=== PATIENT | female | born 1930 | race Caucasian/White ===

== ENCOUNTER 2017-03-04 20:32 | Inpatient (IN) ==
--- OUTSIDE RECORDS SUMMARY | 2017-03-04 21:12 | External Medical Summary | Referral Summary ---
:1930 Author Organization [facility] [place] [address] Care Team Providers Name Role Phone Dario Polanco Primary Care Physician Encounter VC Date(s): 12/30/14 - 12/30/14 [facility] [place] [address] [place] Discharge Diagnosis: Benign essential hypertension Discharge Diagnosis: Gastroesophageal reflux disease Discharge Diagnosis: Hypercholesterolemia Discharge Diagnosis: Type 2 diabetes mellitus Discharge Disposition: 01-Home or Self Care Attending Physician: Dario Polanco MD Admitting Physician: Dario Polanco MD Vital Signs Most recent to oldest [Reference Range]: 1 Temperature Tympanic [36.6-38.1 degC] 36.0 degC *LOW* (12/30/14 8:40 AM) Peripheral Pulse Rate [60-100 bpm] 80 bpm (12/30/14 8:40 AM) Respiratory Rate [14-20 br/min] 16 br/min (12/30/14 8:40 AM) Blood Pressure [90-140/60-90 mmHg] 150/66 mmHg *HI* (12/30/14 8:40 AM) Problem List Condition Effective Dates Status Health Status Informant Benign essential hypertension Active (disorder)(Confirmed) Gastroesophageal reflux disease Active (disorder)(Confirmed) History of breast cancer(Confirmed) Active Kidney disease(Confirmed) Active Type 2 diabetes mellitus(Confirmed) Active Allergies, Adverse Reactions, Alerts No Known Medication Allergies Medications amLODIPine 10 mg oral tablet See Instructions, TAKE 1 TABLET DAILY, # 90 tabs, 1 Refill(s), Pharmacy: [facility], TAKE 1 TABLET DAILY Start Date: 10/21/14 Status: OrderedglipiZIDE 10 mg oral tablet See Instructions, TAKE 1 TABLET EVERY DAY BEFORE A MEAL, # 90 tabs, eRx: [facility], TAKE 1 TABLET EVERY DAY BEFORE A MEAL Start Date: 12/21/14 Status: OrderedKlor-Con oral tablet, extended release See Instructions, TAKE 1 TABLET DAILY (NEED TO MAKE APPOINTMENT), # 90 tabs, 1 Refill(s), eRx: [facility], TAKE 1 TABLET DAILY (NEED TO MAKE APPOINTMENT) Start Date: 08/13/14 Status: Orderedlisinopril 5 mg oral tablet See Instructions, TAKE 1 TABLET DAILY, # 90 tabs, 2 Refill(s), eRx: [facility], TAKE 1 TABLET DAILY Start Date: 04/07/14 Status: Orderedomeprazole 40 mg oral delayed release capsule See Instructions, TAKE 1 CAPSULE EVERY DAY, # 90 caps, 1 Refill(s), Pharmacy: [facility], TAKE 1 CAPSULE EVERY DAY Start Date: 10/21/14 Status: OrderedPravachol 20 mg oral tablet 20 mg 1 tabs, Oral, Daily, # 90 tabs, 3 Refill(s), Pharmacy: [facility], 1 tabs Oral Daily,x90 days Start Date: 12/30/14 Stop Date: 12/25/15 Status: Ordered Results Chemistry Most recent to oldest [Reference Range]: 1 Sodium Lvl [135-144 mEq/L] 142 mEq/L (12/30/14 9:17 AM) Potassium Lvl [3.5-5.2 mEq/L] 3.5 mEq/L (12/30/14 9:17 AM) Chloride [99-111 mEq/L] 107 mEq/L (12/30/14 9:17 AM) CO2 [22-31 mEq/L] 24 mEq/L (12/30/14 9:17 AM) AGAP [3-20] 11 (12/30/14 9:17 AM) BUN [10-20 mg/dL] 22 mg/dL *HI* (12/30/14 9:17 AM) Glucose Lvl [70-99 mg/dL] 231 mg/dL *HI* (12/30/14 9:17 AM) Creatinine Lvl [0.57-1.11 mg/dL] 0.99 mg/dL (12/30/14 9:17 AM) eGFR [>60 mL/min] 54 mL/min 1 *ABN* (12/30/14 9:17 AM) Calcium Lvl [8.9-10.5 mg/dL] 9.3 mg/dL (12/30/14 9:17 AM) Hgb A1c [4.1-5.6 %] 7.3 % *HI* (12/30/14 9:17 AM) eAvg Glucose 162.8 mg/dL (12/30/14 9:17 AM) 1Result Comment: Multiply eGFR results by 1.21 for race. Immunizations No data available for this section Procedures Procedure Date Related Diagnosis Body Site Renal lithotripsy 11/23/10 Rt Mastectomy for breast cancer 2007 Colonoscopy Hysterectomy Kidney stone removal Social History Social History Type Response Smoking Status Never smoker Assessment and Plan Extracted from: Title: Office Visit Note Author: Dario Polanco MD Date: 12/30/14 Assessment/Plan Benign essential hypertension Gastroesophageal reflux disease Hypercholesterolemia Type 2 diabetes mellitus Plan: I want you to stop the niacin and start some pravastatin 20 mg once a day. I want to check an LDL and CMP and an A1c in 3 months. Continue all other current medications. I suspect that we should make some changes to your diabetes medicine if you're A1c continues to be high. Follow-up in 3 months. We did discuss the need for new primary care physician. Ordered: Hemoglobin A1c Orders: pravastatin, 20 mg 1 tabs, Oral, Daily, # 90 tabs, 3 Refill(s), [facility], 1 tabs Oral Daily,x90 days
--- OUTSIDE RECORDS SUMMARY | 2017-03-04 21:12 | External Medical Summary | Referral Summary ---
:1930 Author Organization [facility] [place] [address] Care Team Providers Name Role Phone Adams Duong Primary Care Physician Encounter VC Date(s): 03/30/15 - 03/30/15 [facility] [place] [address]- Discharge Diagnosis: Type 2 diabetes mellitus Discharge Diagnosis: Benign essential hypertension Discharge Diagnosis: Gastroesophageal reflux disease Discharge Diagnosis: Hypercholesteremia Discharge Disposition: 01-Home or Self Care Attending Physician: Dario Polanco MD Admitting Physician: Dario Polanco MD Vital Signs Most recent to oldest [Reference Range]: 1 Temperature Tympanic [36.6-38.1 degC] 36.2 degC *LOW* (03/30/15 3:06 PM) Blood Pressure [90-140/60-90 mmHg] 116/64 mmHg (03/30/15 3:06 PM) Problem List Condition Effective Dates Status Health Status Informant Benign essential hypertension Active (disorder)(Confirmed) Gastroesophageal reflux disease Active (disorder)(Confirmed) History of breast cancer(Confirmed) Active Hypercholesteremia(Confirmed) Active Kidney disease(Confirmed) Active Type 2 diabetes mellitus(Confirmed) Active Allergies, Adverse Reactions, Alerts No Known Medication Allergies Medications amLODIPine 10 mg oral tablet See Instructions, TAKE 1 TABLET DAILY, # 90 tabs, 1 Refill(s), Pharmacy: [facility], TAKE 1 TABLET DAILY Start Date: 10/21/14 Status: OrderedglipiZIDE 10 mg oral tablet See Instructions, TAKE 1 TABLET EVERY DAY BEFORE A MEAL bid, # 180 tabs, 1 Refill(s), [facility], TAKE 1 TABLET EVERY DAY BEFORE A MEAL bid Start Date: 02/23/15 Status: OrderedKlor-Con oral tablet, extended release See Instructions, TAKE 1 TABLET DAILY (NEED TO MAKE APPOINTMENT), # 90 tabs, 1 Refill(s), eRx: [facility], TAKE 1 TABLET DAILY (NEED TO MAKE APPOINTMENT) Start Date: 08/13/14 Status: Orderedlisinopril 5 mg oral tablet See Instructions, TAKE 1 TABLET DAILY (PLEASE SCHEDULE AN APPOINTMENT FOR FURTHER REFILLS), # 90 tabs, 2 Refill(s), eRx: [facility], TAKE 1 TABLET DAILY (PLEASE SCHEDULE AN APPOINTMENT FOR FURTHER REFILLS) Start Date: 03/17/15 Status: Orderedomeprazole 40 mg oral delayed release capsule See Instructions, TAKE 1 CAPSULE EVERY DAY, # 90 caps, 1 Refill(s), Pharmacy: [facility], TAKE 1 CAPSULE EVERY DAY Start Date: 10/21/14 Status: OrderedPravachol 20 mg oral tablet 20 mg 1 tabs, Oral, Daily, # 90 tabs, 3 Refill(s), Pharmacy: [facility], 1 tabs Oral Daily,x90 days Start Date: 12/30/14 Stop Date: 12/25/15 Status: Ordered Results No data available for this section Immunizations No data available for this section Procedures Procedure Date Related Diagnosis Body Site Renal lithotripsy 11/23/10 Rt Mastectomy for breast cancer 2007 Colonoscopy Hysterectomy Kidney stone removal Social History Social History Type Response Smoking Status Never smoker Assessment and Plan Extracted from: Title: Office Visit Note Author: Dario Polanco MD Date: 03/30/15 Assessment/Plan Benign essential hypertension Gastroesophageal reflux disease Hypercholesteremia Type 2 diabetes mellitus Plan: I'm going to check an A1c,microalbumin level, CMP andLDL level. Continue all current medications. We discussed the need to find a new primary care doctor. Follow-up in 3 months with jim garcia new doctorfor med checkup. We discussed the need to see an eye doctor yearly. At this pointyou're daughter reported that you do see an eye doctor yearlybut could not remember the name of the doctor.
--- OUTSIDE RECORDS SUMMARY | 2017-03-04 21:12 | External Medical Summary | Referral Summary ---
:1930 Author Organization [facility], [facility] Address [address] [place] [address] [place] [address] Care Team Providers Name Role Phone Adams Duong Primary Care Physician Encounter VC Date(s): 04/21/15 - 04/21/15 [facility], [address] [place] [phone]- Discharge Diagnosis: Closed fracture of left distal radius and ulna Discharge Diagnosis: Closed fracture of distal end of ulna Discharge Disposition: 01-Home or Self Care Attending Physician: Link Minor PA-C Admitting Physician: Link Minor PA-C Vital Signs Most recent to oldest [Reference Range]: 1 Temperature Tympanic [36.6-38.1 degC] 36.9 degC (04/21/15 6:04 PM) Apical Heart Rate [60-100 bpm] 79 bpm (04/21/15 6:04 PM) Blood Pressure [90-140/60-90 mmHg] 130/72 mmHg (04/21/15 6:04 PM) SpO2 96 % (04/21/15 6:04 PM) Problem List Condition Effective Dates Status Health Status Informant Benign essential hypertension Active (disorder)(Confirmed) Gastroesophageal reflux disease Active (disorder)(Confirmed) History of breast cancer(Confirmed) Active Hypercholesteremia(Confirmed) Active Kidney disease(Confirmed) Active Type 2 diabetes mellitus(Confirmed) Active Allergies, Adverse Reactions, Alerts No Known Medication Allergies Medications amLODIPine 10 mg oral tablet See Instructions, TAKE 1 TABLET DAILY, # 90 tabs, 1 Refill(s), Pharmacy: [facility], TAKE 1 TABLET DAILY Start Date: 10/21/14 Status: OrderedglipiZIDE 10 mg oral tablet See Instructions, TAKE 1 TABLET EVERY DAY BEFORE A MEAL bid, # 180 tabs, 1 Refill(s), Pharmacy: [facility], TAKE 1 TABLET EVERY [...] REFILLS), # 90 tabs, 2 Refill(s), eRx: [facility], TAKE 1 TABLET DAILY (PLEASE SCHEDULE AN APPOINTMENT FOR FURTHER REFILLS) Start Date: 03/17/15 Status: Orderedomeprazole 40 mg oral delayed release capsule See Instructions, TAKE 1 CAPSULE EVERY DAY, # 90 caps, 1 Refill(s), Pharmacy: [facility], TAKE 1 CAPSULE EVERY DAY Start Date: 10/21/14 Status: OrderedPravachol 20 mg oral tablet 20 mg 1 tabs, Oral, Daily, # 90 tabs, 3 Refill(s), Pharmacy: [facility], 1 tabs Oral Daily,x90 [...] Smoking Status Never smoker Assessment and Plan No data available for this section
--- OUTSIDE RECORDS SUMMARY | 2017-03-04 21:12 | External Medical Summary | Referral Summary ---
:1930 Author Organization [facility] [place] [address] Care Team Providers Name Role Phone Dario Polanco Primary Care Physician Encounter VC Date(s): 12/30/14 - 12/30/14 [facility] [place] [phone] [place] Discharge Diagnosis: [...] DAILY, # 90 tabs, 1 Refill(s), Pharmacy: [facility], TAKE 1 TABLET DAILY Start Date: 10/21/14 Status: OrderedglipiZIDE 10 mg oral tablet See Instructions, TAKE 1 TABLET EVERY DAY BEFORE A MEAL, # 90 tabs, eRx: [facility], TAKE 1 TABLET EVERY [...] DAY, # 90 caps, 1 Refill(s), Pharmacy: [facility], TAKE 1 CAPSULE EVERY DAY Start Date: 10/21/14 Status: OrderedPravachol 20 mg oral tablet 20 mg 1 tabs, Oral, Daily, # 90 tabs, 3 Refill(s), Pharmacy: [facility], 1 tabs Oral Daily,x90 [...] Daily, # 90 tabs, 3 Refill(s), [facility], 1 tabs Oral Daily,x90 days
--- OUTSIDE RECORDS SUMMARY | 2017-03-04 21:12 | External Medical Summary | Referral Summary ---
:1930 Author Organization [facility] [place] [address] Care Team Providers Name Role Phone Dario Polanco Primary Care Physician Encounter VC Date(s): 12/30/14 - 12/30/14 [facility] [place] [phone] [place] Discharge Diagnosis: [...] DAILY, # 90 tabs, 1 Refill(s), Pharmacy: [facility], TAKE 1 TABLET DAILY Start Date: 10/21/14 Status: OrderedglipiZIDE 10 mg oral tablet See Instructions, TAKE 1 TABLET EVERY DAY BEFORE A MEAL, # 90 tabs, eRx: [facility], TAKE 1 TABLET EVERY [...] DAY, # 90 caps, 1 Refill(s), Pharmacy: [facility], TAKE 1 CAPSULE EVERY DAY Start Date: 10/21/14 Status: OrderedPravachol 20 mg oral tablet 20 mg 1 tabs, Oral, Daily, # 90 tabs, 3 Refill(s), Pharmacy: [facility], 1 tabs Oral Daily,x90 [...] Daily, # 90 tabs, 3 Refill(s), [facility], 1 tabs Oral Daily,x90 days
--- OUTSIDE RECORDS SUMMARY | 2017-03-04 21:12 | External Medical Summary | Referral Summary ---
:1930 Author Organization [facility] [place] [address] Care Team Providers Name Role Phone Dario Polanco Primary Care Physician Encounter VC Date(s): 12/30/14 - 12/30/14 [facility] [place] [address] [place] Discharge Diagnosis: [...] DAILY, # 90 tabs, 1 Refill(s), Pharmacy: [facility], TAKE 1 TABLET DAILY Start Date: 10/21/14 Status: OrderedglipiZIDE 10 mg oral tablet See Instructions, TAKE 1 TABLET EVERY DAY BEFORE A MEAL, # 90 tabs, eRx: [facility], TAKE 1 TABLET EVERY [...] DAY, # 90 caps, 1 Refill(s), Pharmacy: [facility], TAKE 1 CAPSULE EVERY DAY Start Date: 10/21/14 Status: OrderedPravachol 20 mg oral tablet 20 mg 1 tabs, Oral, Daily, # 90 tabs, 3 Refill(s), Pharmacy: [facility], 1 tabs Oral Daily,x90 [...] Daily, # 90 tabs, 3 Refill(s), [facility], 1 tabs Oral Daily,x90 days
--- OUTSIDE RECORDS SUMMARY | 2017-03-04 21:12 | External Medical Summary | Referral Summary ---
:1930 Author Organization [facility] [place] [address] Care Team Providers Name Role Phone Adams Duong Primary Care Physician Encounter VC Date(s): 12/30/14 - 12/30/14 [facility] [place] [address]- Discharge Diagnosis: Benign essential hypertension Discharge Diagnosis: Gastroesophageal reflux disease Discharge Diagnosis: Hypercholesterolemia Discharge Diagnosis: Type 2 diabetes mellitus Discharge Disposition: 01-Home or Self Care Attending Physician: aDrio Polanco MD Admitting Physician: Dario Polanco MD [...] DAILY, # 90 tabs, 1 Refill(s), Pharmacy: [facility], TAKE 1 TABLET DAILY Start Date: 10/21/14 Status: OrderedglipiZIDE 10 mg oral tablet See Instructions, TAKE 1 TABLET EVERY DAY BEFORE A MEAL bid, # 180 tabs, 1 Refill(s), Pharmacy: [facility], TAKE 1 TABLET EVERY [...] REFILLS), # 90 tabs, 2 Refill(s), eRx: [facility], TAKE 1 TABLET DAILY (PLEASE SCHEDULE AN APPOINTMENT FOR FURTHER REFILLS) Start Date: 03/17/15 Status: Orderedomeprazole 40 mg oral delayed release capsule See Instructions, TAKE 1 CAPSULE EVERY DAY, # 90 caps, 1 Refill(s), Pharmacy: [facility], TAKE 1 CAPSULE EVERY DAY Start Date: 10/21/14 Status: OrderedPravachol 20 mg oral tablet 20 mg 1 tabs, Oral, Daily, # 90 tabs, 3 Refill(s), Pharmacy: [facility], 1 tabs Oral [...] Daily, # 90 tabs, 3 Refill(s), Pharmacy: [facility], 1 tabs Oral Daily,x90 days
[2017-03-04] MEDS: SALINE FLUSH 10ml SYRINGE IVF PRN (21:13)
[2017-03-04] MEDS ORDERED: NS 1,000 ML IV SCH (21:15)
--- NOTE | 2017-03-04 22:40 | Emergency Department Report ---
Nausea/Vomiting/Diarrhea HPI - General Chief complaint: Nausea/Vomiting/Diarrhea Stated complaint: Dehydrated, vomitting Time Seen by Provider: 03/04/17 20:52 Source: patient, family Mode of arrival: wheelchair Limitations: no limitations - History of Present Illness HPI Narrative: Pt presents with a complaint of weakness and not feeling well for the past few days. Daughter reports another daughter told her pt was c/o vomiting and diarrhea however pt does not report this to daughter at bedside or medical staff. Pt cannot recall her last po intake, she denies any pain, and is unable to report if fever at home. MD complaint: vomiting, diarrhea Onset (ago): day(s) Associated Abdominal Pain: No Relieving factors: none Exacerbating factors: none Associated symptoms: dysuria, weakness - Related Data Home Medications Medication Instructions Recorded Confirmed Amlodipine Besylate 10 mg PO DAILY #0 07/20/10 03/04/17 Potassium Chloride [Klor-Con 10] 10 meq PO DAILY #0 07/20/10 03/04/17 Omeprazole 40 mg PO DAILY 03/04/17 03/04/17 Pravastatin [Pravachol] 1 tab PO HS 03/04/17 03/04/17 Previous Rx's Medication Instructions Recorded Acidoph/L.bulg/Bif.b/S.thermop 2 cap PO TIDWM tab 03/07/17 [Bacid Caplet] CephALEXin [Keflex] 500 mg PO TID #5 cap 03/07/17 Mirtazapine [Remeron] 7.5 mg PO HS #30 tab 03/07/17 glipiZIDE [Glipizide] 10 mg PO ACBID #0 03/07/17 Allergies Allergy/AdvReac Type Severity Reaction Status Date / Time No Known Drug Allergies Allergy Unknown Verified 03/04/17 23:30 Review of Systems All systems: reviewed and negative except as stated Constitutional: Reports: as per HPI Gastrointestinal: Reports: as per HPI Genitourinary: Reports: as per HPI Musculoskeletal: Reports: as per HPI Neurological: Reports: as per HPI PFS Patient Stated Medical History Hypertension Yes Diabetes Mellitus Type 2 Yes Clinic Medical History Dehydration (Acute Medical) UTI (urinary tract infection), uncomplicated (Acute Medical) Gastroenteritis and colitis, viral (Acute Medical) - Social History Smoking status: Never smoker Physical Exam - Limitations Limitations: no limitations - General General appearance: alert, in distress - Normal Exams: Head:: Normocephalic without trauma Eyes:: Pupils are PERRLA w/ EOMI Neck:: Full range of motion, without adenopathy Chest/Respirations:: Clear all serra, with good airflow Cardiovascular:: Regular rate and rhythm, without murmur or gallop Abdomen:: Bowel sounds positive, soft, non-tender, non-distended Musculoskeletal:: No tenderness, or deformity noted, good range of motion, all extremities Integumentary:: No rashes Neurological:: Patient is alert, and oriented Psychiatric:: Patient exhibits, appropriate attention, emotion and affect Course Vital Signs Temperature 97.9 F 03/04/17 20:46 Pulse Rate 101 H 03/04/17 20:46 Respiratory Rate 32 H 03/04/17 20:46 Blood Pressure 99/54 03/04/17 20:46 Pulse Oximetry 100 03/04/17 20:46 Temperature 96.9 F 03/07/17 07:27 Pulse Rate 82 03/07/17 07:27 Respiratory Rate 14 03/07/17 07:27 Blood Pressure 145/74 H 03/07/17 07:27 Pulse Oximetry 99 03/07/17 07:27 Nausea/Vomiting/Diarrhea - Differential Diagnosis Likely: traveler's diarrhea, food poisoning, gastroenteritis, clostridium difficile infection, dehydration - Lab Data Result diagrams: 03/07/17 04:25 03/07/17 04:25 Lab Results 03/04/17 03/04/17 03/04/17 Range/Units 21:16 21:16 22:00 WBC 17.3 H (4.5-11.0) T/MM3 RBC 3.93 L (4.00-5.20) M/MM3 Hgb 12.4 (12-16) GM/DL Hct 37.8 (36-46) % MCV 96.2 (80-100) UM3 MCH 31.6 (26-34) UUG MCHC 32.8 (31-37) GM/DL RDW Std Deviation 44.0 (36.9-50.2) FL Plt Count 470 H (130-400) T/MM3 MPV 10.1 (9.4-12.4) UM3 Immature Gran % (Auto) Not performed Neut % (Auto) Not performed Lymph % (Auto) Not performed [place] % (Auto) Not performed Eos % (Auto) Not performed Baso % (Auto) Not performed Neut # (Auto) Not performed Lymph # (Auto) Not performed [place] # (Auto) Not performed Eos # (Auto) Not performed Baso # (Auto) Not performed Abs Immat Gran (auto) Not performed Neutrophils % (Manual) 93.0 H (33-66) % Lymphocytes % (Manual) 6.0 L (23-45) % Monocytes % (Manual) 1.0 (0-9.0) % Neutrophils # (Manual) 16.1 H (1.8-7.7) T/MM3 Lymphocytes # (Manual) 1.0 (1-4.8) T/MM3 Monocytes # (Manual) 0.2 (0-0.8) T/MM3 RBC Morph Comment Normal Turbidity < 20 (0-20) Sodium 147 H (134-144) MEQ/L Potassium 4.0 (3.6-5) MEQ/L Chloride 112 H (98-107) MEQ/L Carbon Dioxide 19 L (22-30) MEQ/L Anion Gap 16 H (5-15) MEQ/L BUN 55.0 H* (7-17) MG/DL Creatinine 2.8 H (0.7-1.2) MG/DL GFR Calculation 16 BUN/Creatinine Ratio 20 (6-26) RATIO Glucose 63 L (65-110) MG/DL Calculated Osmolality 295 H (261-280) MOSM/KG Calcium 9.6 (8.4-10.2) MG/DL Total Bilirubin 0.90 (0.20-1.30) MG/DL Icterus Index < 2 (0-7) AST 13 L (14-36) U/L ALT 25 (9-52) U/L Alkaline Phosphatase 121 (38-126) U/L Total Protein 8.1 (6.3-8.2) G/DL Albumin 4.2 (3.5-5.0) G/DL Globulin 3.9 H (2.4-3.6) G/DL Albumin/Globulin Ratio 1.1 (1.1-2.2) RATIO Plasma Lactate (0.6-2.2) MMOL/L Procalcitonin NG/ML Specimen Hemolysis < 15 (0-25) Ur Collection Type Urine, catheter Urine Color Yellow (YELLOW) Urine Clarity Sl cloudy Urine pH 5.5 (5.0-8.0) Ur Specific [place] 1.015 (1.015-1.025) Urine Protein Trace A (NEGATIVE) Urine Glucose (UA) Negative (NEGATIVE) Urine Ketones Negative (NEGATIVE) Urine Occult Blood Negative (NEGATIVE) Urine Nitrate Positive A (NEGATIVE) Urine Bilirubin Negative (NEGATIVE) Urine Urobilinogen 0.2 (NORMAL) EU/DL Ur Leukocyte Esterase Trace A (NEGATIVE) Urine RBC 0-1 (0-3) /HPF Urine WBC 5-10 H (0-5) /HPF Ur Squamous Epith Cells 0-5 Urine Bacteria 3+ H (NEGATIVE) Ur Culture Indicated? Cult reflexed &setup 03/04/17 03/04/17 Range/Units 22:02 22:02 WBC (4.5-11.0) T/MM3 RBC (4.00-5.20) M/MM3 Hgb (12-16) GM/DL Hct (36-46) % MCV (80-100) UM3 MCH (26-34) UUG MCHC (31-37) GM/DL RDW Std Deviation (36.9-50.2) FL Plt Count (130-400) T/MM3 MPV (9.4-12.4) UM3 Immature Gran % (Auto) Neut % (Auto) Lymph % (Auto) [place] % (Auto) Eos % (Auto) Baso % (Auto) Neut # (Auto) Lymph # (Auto) [place] # (Auto) Eos # (Auto) Baso # (Auto) Abs Immat Gran (auto) Neutrophils % (Manual) (33-66) % Lymphocytes % (Manual) (23-45) % Monocytes % (Manual) (0-9.0) % Neutrophils # (Manual) (1.8-7.7) T/MM3 Lymphocytes # (Manual) (1-4.8) T/MM3 Monocytes # (Manual) (0-0.8) T/MM3 RBC Morph Comment Turbidity (0-20) Sodium (134-144) MEQ/L Potassium (3.6-5) MEQ/L Chloride (98-107) MEQ/L Carbon Dioxide (22-30) MEQ/L Anion Gap (5-15) MEQ/L BUN (7-17) MG/DL Creatinine (0.7-1.2) MG/DL GFR Calculation BUN/Creatinine Ratio (6-26) RATIO Glucose (65-110) MG/DL Calculated Osmolality (261-280) MOSM/KG Calcium (8.4-10.2) MG/DL Total Bilirubin (0.20-1.30) MG/DL Icterus Index (0-7) AST (14-36) U/L ALT (9-52) U/L Alkaline Phosphatase (38-126) U/L Total Protein (6.3-8.2) G/DL Albumin (3.5-5.0) G/DL Globulin (2.4-3.6) G/DL Albumin/Globulin Ratio (1.1-2.2) RATIO Plasma Lactate 1.9 (0.6-2.2) MMOL/L Procalcitonin 0.10 NG/ML Specimen Hemolysis (0-25) Ur Collection Type Urine Color (YELLOW) Urine Clarity Urine pH (5.0-8.0) Ur Specific [place] (1.015-1.025) Urine Protein (NEGATIVE) Urine Glucose (UA) (NEGATIVE) Urine Ketones (NEGATIVE) Urine Occult Blood (NEGATIVE) Urine Nitrate (NEGATIVE) Urine Bilirubin (NEGATIVE) Urine Urobilinogen (NORMAL) EU/DL Ur Leukocyte Esterase (NEGATIVE) Urine RBC (0-3) /HPF Urine WBC (0-5) /HPF Ur Squamous Epith Cells Urine Bacteria (NEGATIVE) Ur Culture Indicated? Disposition Clinical Impression: Dehydration, UTI (urinary tract infection), uncomplicated Disposition: 02 To [facility] Acute Care Condition: Stable - Seen By: midlevel
[2017-03-04] MEDS ORDERED: CEFTRIAXONE (ER USE ONLY) 1 GM in NS 100 ML IV ONE (22:54)
[2017-03-04] MEDS ORDERED: INSULIN ASPART 100unit/ml INJECTION SQ PRN (23:27)
[2017-03-04] MEDS ORDERED: ONDANSETRON 4 MG/2 ML INJECTION IVP PRN (23:27)
[2017-03-04] MEDS ORDERED: GLUCOSE ORAL GEL 40% 37.5gm PO PRN (23:27)
[2017-03-04] MEDS ORDERED: DEXTROSE 50% SYRINGE 50ml (1 AMP) IVP PRN (23:27)
[2017-03-04] MEDS: NS 1,000 ML IV SCH (23:36)
[2017-03-05] MEDS: SALINE FLUSH 10ml SYRINGE IVF PRN (00:57)
[2017-03-05] MEDS: ACETAMINOPHEN 325 MG TABLET PO PRN (00:57)
--- NOTE | 2017-03-05 01:18 | History & Physical Report ---
History of Present Illness Date: 03/05/17 Chief complaint: Weakness HPI: This is an 87 y/o female w/ h/o Type 2 DM, Breast Ca, HTN who presents to ER at [facility] [place] w/ chief concern of feeling weak over the past several days, and having one episode of n/v/d per day for the past 3 days. Overall patient states that she doesn't "feel well". Patient denies cough, abdominal pain, chest pain and shortness of breath. She further denies LYNCH, dysphagia, hematemesis, hematochezia and BRBPR. She has had a poor appetite and minimal oral intake over the past several days. In ER patient noted to have slight tachycardia, WBC of 17.3 K, a BUN of 55 and a Cr of 2.8, and her and her [id number] state that the patient is not aware of having any "kidney problems" in the past. Patient given 500 cc NS bolus x one then started on NS at 150cc/hour. Patient's UA showed WBCs on microscopic and patient given one dose of Rocephin 1gram IV. Lactate = 1.9. Patient admitted to the Hospitalist service for further evaluation and management. Patient states she is feeling better already upon my visiting w/ her, and this is confirmed by patient's family in the room. 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 though last Cr to compare was from 2011 - Social History Smoking status: Never smoker Medications Home Medications Medication Instructions Recorded Confirmed Type Amlodipine Besylate 10 mg PO DAILY #0 07/20/10 03/04/17 History Lisinopril 5 mg PO DAILY #0 07/20/10 03/04/17 History Potassium Chloride [Klor-Con 10] 10 meq PO DAILY #0 07/20/10 03/04/17 History glipiZIDE [Glipizide] 10 mg PO BID #0 07/20/10 03/04/17 History Metformin HCl [Metformin HCl ER] 1,000 mg PO DAILY 03/04/17 03/04/17 History Omeprazole 40 mg PO DAILY 03/04/17 03/04/17 History Pravastatin [Pravachol] 1 tab PO HS 03/04/17 03/04/17 History Allergies Allergy/AdvReac Type Severity Reaction Status Date / Time No Known Drug Allergies Allergy Unknown Verified 03/04/17 23:30 Exam Vital Signs: Temperature 96.0 F L 03/04/17 23:25 Pulse Rate 79 03/04/17 23:25 Respiratory Rate 16 03/04/17 23:25 Blood Pressure 113/65 03/04/17 23:25 Pulse Oximetry 98 03/04/17 23:25 Height/Weight/BMI: Height 1.47 m Weight 47 kg Body Mass Index 21.7 - Constitutional Present: no acute distress, well nourished, well developed - Routine HEENT Exam Head: Present: normocephalic, atraumatic Eye: Present: EOMI, PERRL ENT: Present: mucous membranes dry - Routine Neck Exam Present: supple, full ROM. Absent: JVD - Routine Respiratory Exam Present: CTA bilaterally. Absent: accessory muscle use, dyspnea, rales, rhonchi , wheezes, crackles - Routine Cardiovascular Exam Present: RRR, S1, S2 - Routine Abdominal Exam Present: soft, normoactive bowel sounds, non distended, non tender - Routine Extremities Exam Absent: cyanosis, clubbing, edema - Routine Neurological Exam Present: alert, oriented X3, CN II-XII intact - Routine Psychiatric Exam Present: normal affect, normal thought process Results - Labs CBC & Chem 7: 03/05/17 02:21 03/05/17 02:21 Assessment and Plan Assessment and Plan: Assessment 1) Acute UTI 2) Acute CKD, likely component of CKD 3) Acute Dehydration 4) Dm type 2 - patient mildly hypoglycemia on admission - on oral meds metformin and sulfonylurea at home 5) HTN 6) h/o Breast Ca Plan Admit to Hospitalist service Continue Rocephin 1 gram IV q 24 hours Continue IVFs of normal saline Check labs later this AM Check A1C this AM Correctional Insulin w/ Glucose checks and Hypoglycemia protocol Hold Metformin and Glipizide Hold Lisinopril and KCL Continue Amlodipine Blood Cx pending Urine Cx pending Protonix 40mg po daily SCDs I discussed the plan of care w/ the patient and patient's family and they verbalized understanding and agreement 03/05/17 - Shaggy [id number] Have independently interviewed and examined pt. Chart reviewed. Case discussed with family and nursing. Reviewed above note and concur. CC: N/V/D, weakness HPI: 87 y/o female with Type II DM presents to [facility] [place] ED secondary to N/V/D and weakness. For the last week her oral drive has been decreased-not feeling as hungry and not wanting to eat as much. Progressively more weak. 3 days ago started a more pronounced decline. Oral drive very diminished (taking in small amounts of boost and water). Not eating as would cause nausea. Developed fecal urgency-need to pass stool, but only about 1 loose stool a day. Increased abdominal cramping and bloating. Notes chills. Urine output decreased. No falls with her generalized weakness. No localizing neurological changes. Breathing stable-not having increased SOA, cough, or congestion. No palpitations or chest heaviness. Notes some frontal headache. With continued symptoms, presents to ED for evaluation. WBC elevated. Serum sodium elevated at 147. CO2 decreased- indicative of metabolic acidosis. Urine suspicious for infection. Placed in inpatient admission for treatment. PHMx: Type II DM, HTN, Breast CA with R Mastectomy 07/08, Hx Hyst, Hx renal stones, Hx tonsillectomy, Hx Colonoscopy 2010. ALL: NKDA. MEDS: see mar Shx: , lives with son and daughter-good family support. No smoke/EtOH. See Dr Yu for primary care. FHx: Mother at age 45 in childbirth. Father at age 80 of aneurysm. ROS: as above. Remainder or 10 point ROS discussed with patient and negative. EXAM GEN: WDWN female. Awake and alert, but looks tired and weak. HEENT: NC/AT PERRLA EOMI Neck: Supple, midline, no tracheal deviation Lungs: decreased breath sounds bilaterally, no crackles or wheeze. Breaths comfortably on RA. CV: RRR without murmur AB: soft nt/nd +BS EXT: No C/C/E. SCD in place. Equal radial pulses bilaterally Skin: warm and dry Neuro: CN II-XII intact. No focal motor deficits Psych: awake alert appropriate Lab: noted Assessment UTI Leukocytosis Metabolic acidosis Hypernatremia (POA) Elevated serum creatinine - WILFRIDO vs CKD Acute dehydration N/V with decreased oral drive Suspect recent gastroenteritides initiating above noted problems Type II DM HTN Hx breast Ca Plan Inpatient admission to [facility] [place] for treatment of UTI, metabolic acidosis, dehydration. Anticipate greater than 2 midnights of care needed. IV Rocephin for urinary coverage - check urine C/S. IV for volume support. NS initiated in ED and by tele-hospitalist. Will change to 1/2NS secondary to hypernatremia. Zofran as needed to help nausea. Probiotics secondary to loose stool. Hold Lisinopril secondary to elevation of creatinine. Monitor lab. Hold Glyburide and metformin secondary to decreased oral drive and metabolic acidosis/elevated creatinine. Monitor blood sugars. Hold KCl secondary to concern for WILFRIDO. SCD for DVT prevention. Will check stool PCR panel secondary to diarrhea. Consult PT/OT to help increase strength and functional abilities when patient more medically stable. Monitor CBC secondary to leukocytosis. Monitor BMP secondary to hypernatremia and IVF use. Discussed code status with patient. Did feel she would not wish revival interventions. Full code ordered with admission. Will discuss code status when patient less acutely ill to make sure she understands. Care to return to Dr Yu at time of discharge from [facility] [place]. DVT Prophylaxis: SCD's GI Prophylaxis: Protonix Resuscitation Status: Full Code Hospital Course Summary Disclaimer: The visit summary below is not to be considered part of the above Progress Note.
[2017-03-05] MEDS: AMLODIPINE 10 MG TABLET PO SCH (08:25)
[2017-03-05] MEDS ORDERED: PANTOPRAZOLE 40 MG TABLET PO SCH (09:00)
[2017-03-05 11:34] VITALS: BMI 22.9
[2017-03-05] MEDS: CEFTRIAXONE 1 G in NS 100 ML IV SCH (11:47)
[2017-03-05] MEDS: NS 1,000 ML IV SCH (13:13)
[2017-03-05] MEDS: 1/2 NS 1,000 ML IV SCH ×2 (13:27→23:48)
[2017-03-05] MEDS: LACTOBACILLUS (15B cfu) CAPSULE PO SCH (16:54)
[2017-03-05] MEDS: PRAVASTATIN 20 MG TABLET PO SCH (20:39)
[2017-03-06] MEDS: PANTOPRAZOLE 40 MG TABLET PO SCH (09:43)
[2017-03-06] MEDS: AMLODIPINE 10 MG TABLET PO SCH (09:43)
[2017-03-06] MEDS: LACTOBACILLUS (15B cfu) CAPSULE PO SCH ×3 (09:43→17:11)
[2017-03-06] MEDS: CEFTRIAXONE 1 G in NS 100 ML IV SCH (09:43)
[2017-03-06] MEDS ORDERED: 1/2 NS 1,000 ML IV SCH (09:45)
[2017-03-06] MEDS: 1/2 NS 1,000 ML IV SCH ×2 (09:45→09:54)
--- NOTE | 2017-03-06 09:48 | Progress Note ---
- Date 03/06/17 Subjective: F/U: UTI, Gastroenteritis, Leukocytosis, Hypernatremia Doing better today. Able to eat a little better. Stools decreasing. Less ab discomfort and bloating. Oral drive still down. Breathing stable-not feeling more congested or SOA with IVF. Urinating well. No chest pain or palpitations. Not as washed out and weak, but strength still decreased. Daughter reports patient not sleeping well at night-wonders about something for sleep. Objective Vital signs: Temperature 97.2 F 03/06/17 07:37 Pulse Rate 83 03/06/17 07:37 Respiratory Rate 16 03/06/17 07:37 Blood Pressure 117/73 03/06/17 07:37 Pulse Oximetry 98 03/06/17 07:37 Height/Weight/BMI: Height 1.47 m Weight 49.5 kg Body Mass Index 22.9 - Constitutional Present: well nourished, well developed, average body habitus, cooperative. Absent: combative, agitated - Routine HEENT Exam Head: Present: normocephalic, atraumatic Eye: Present: EOMI, PERRL ENT: Present: mucous membranes moist - Routine Respiratory Exam Present: decreased breath sounds. Absent: rales, respiratory distress, rhonchi , stridor, wheezes, crackles - Routine Cardiovascular Exam Present: RRR, no murmur - Routine Abdominal Exam Present: soft, non distended, non tender. Absent: normoactive bowel sounds ( decreased ), guarding - Routine Extremities Exam Present: cyanosis, clubbing, no edema - Routine Skin Exam Present: dry, warm - Routine Neurological Exam Present: alert, CN II-XII intact, moving all extremities, vision grossly intact , hearing grossly intact, normal speech. Absent: motor deficit, altered mental status - Routine Psychiatric Exam Present: normal affect, normal thought process, cooperative. Absent: anxious, agitated Results - Labs CBC & Chem 7: 03/06/17 04:11 03/06/17 04:11 Assessment and Plan Assessment and Plan: Assessment Gastroenteritides (stool positive for Adenovirus) initiating below noted problems UTI - Subclinical growth of E coli Leukocytosis (POA) - resolved Metabolic acidosis (POA) - resolved Hypernatremia (POA) - resolved Elevated serum creatinine - WILFRIDO vs CKD Acute dehydration - improving N/V with decreased oral drive Type II DM HTN Generalized debility secondary to acute illness Hx breast Ca Plan Continue with Rocephin for urinary coverage. Supportive care with Adenovirus - no specific treatment modalities. Decrease IVF of 1/2NS to 50cc/hr as oral drive increasing. Consult with PT/OT to help improve functional status. Start Remeron 7.5mg nightly to help sleep and stimulate appetite. Creatinine improving (1.6 this am) - BP stable; will continue to hold lisinopril. Blood sugars stable. Will continue to hold Glyburide and metformin for now. Recheck CBC in am due to resolving leukocytosis. Recheck BMP in am due to IVF use and resolving hypernatremia. Case discussed with patient's daughter. Time spent with patient care 25 minutes. DVT Prophylaxis: SCD's GI Prophylaxis: Protonix Resuscitation Status: Full Code - Time spent with patient Time with patient PN: 25 minutes Hospital Course Summary Disclaimer: The visit summary below is not to be considered part of the above Progress Note. Hospital Course: 03/04/17 Admission Assessment 1) Acute UTI 2) Acute CKD, likely component of CKD 3) Acute Dehydration 4) Dm type 2 - patient mildly hypoglycemia on admission - on oral meds metformin and sulfonylurea at home 5) HTN 6) h/o Breast Ca Plan Admit to Hospitalist service Continue Rocephin 1 gram IV q 24 hours Continue IVFs of normal saline Check labs later this AM Check A1C this AM Correctional Insulin w/ Glucose checks and Hypoglycemia protocol Hold Metformin and Glipizide Hold Lisinopril and KCL Continue Amlodipine Blood Cx pending/Urine Cx pending Protonix 40mg po daily SCDs 03/05/17 Continue IV Rocephin for urinary coverage - check urine C/S. IV for volume support. NS initiated in ED and by tele-hospitalist. Will change to 1/2NS secondary to hypernatremia. Probiotics secondary to loose stool - will check stool PCR panel secondary to diarrhea. Hold Lisinopril secondary to elevation of creatinine. Monitor lab. Hold Glyburide and metformin secondary to decreased oral drive and metabolic acidosis/elevated creatinine. Monitor blood sugars. Hold KCl secondary to concern for WILFRIDO. Monitor CBC secondary to leukocytosis. Monitor BMP secondary to hypernatremia and IVF use. Discussed code status with patient. Did feel she would not wish revival interventions. Full code ordered with admission. Will discuss code status when patient less acutely ill to make sure she understands. 03/06/17 Continue with Rocephin for urinary coverage. Supportive care with Adenovirus - no specific treatment modalities. Decrease IVF of 1/2NS to 50cc/hr as oral drive increasing. Consult with PT/OT to help improve functional status. Start Remeron 7.5mg nightly to help sleep and stimulate appetite. Creatinine improving (1.6 this am) - BP stable; will continue to hold lisinopril. Blood sugars stable. Will continue to hold Glyburide and metformin for now. Recheck CBC in am due to resolving leukocytosis. Recheck BMP in am due to IVF use and resolving hypernatremia.
[2017-03-06] MEDS: ACETAMINOPHEN 325 MG TABLET PO PRN ×2 (11:35→23:54)
[2017-03-06] MEDS ORDERED: MIRTAZAPINE 15 MG TABLET PO SCH (21:00)
[2017-03-06] MEDS: PRAVASTATIN 20 MG TABLET PO SCH (21:33)
[2017-03-07] MEDS: PANTOPRAZOLE 40 MG TABLET PO SCH (06:24)
[2017-03-07 07:28] VITALS: BP 145/74; PULSE 82; RESP 14; TEMP 96.9; O2SAT 99
[2017-03-07] MEDS: AMLODIPINE 10 MG TABLET PO SCH (09:14)
[2017-03-07] MEDS: LACTOBACILLUS (15B cfu) CAPSULE PO SCH ×2 (09:14→11:04)
--- NOTE | 2017-03-07 12:15 | Progress Note ---
- Date 03/07/17 Subjective: F/U: UTI, Gastroenteritis, Leukocytosis, Hypernatremia More tired today-not as energetic as yesterday (was up and ambulating more). Eating well-not nausea. Still some loose stools; not noticing rectal pain/ burning/itch secondary to loose stool. Urinating well. Breathing well. No f/c. Objective Vital signs: Temperature 96.9 F 03/07/17 07:27 Pulse Rate 82 03/07/17 07:27 Respiratory Rate 14 03/07/17 07:27 Blood Pressure 145/74 H 03/07/17 07:27 Pulse Oximetry 99 03/07/17 07:27 Height/Weight/BMI: Height 1.47 m Weight 49.1 kg Body Mass Index 22.9 - Constitutional Present: well nourished, well developed, cooperative - Routine HEENT Exam Head: Present: normocephalic, atraumatic Eye: Present: EOMI, PERRL ENT: Present: mucous membranes moist - Routine Respiratory Exam Present: CTA bilaterally. Absent: rales, respiratory distress, wheezes, crackles - Routine Cardiovascular Exam Present: RRR, no murmur - Routine Abdominal Exam Present: soft, normoactive bowel sounds, non distended, non tender - Routine Extremities Exam Present: no edema, pulses intact. Absent: cyanosis, clubbing - Routine Musculoskeletal Exam Musculoskeletal: Present: no clubbing or cyanosis, normal strength - Routine Skin Exam Present: dry, warm - Routine Neurological Exam Present: alert, CN II-XII intact, moving all extremities, vision grossly intact , hearing grossly intact. Absent: motor deficit, altered mental status - Routine Psychiatric Exam Present: normal affect, normal thought process, cooperative. Absent: anxious, agitated Results - Labs CBC & Chem 7: 03/07/17 04:25 03/07/17 04:25 Assessment and Plan Assessment and Plan: Assessment Gastroenteritides (stool positive for Adenovirus) initiating below noted problems UTI - Subclinical growth of E coli Leukocytosis (POA) - resolved Metabolic acidosis (POA) - resolved Hypernatremia (POA) - resolved Elevated serum creatinine - WILFRIDO Stage III CKD Acute dehydration - improving N/V with decreased oral drive Type II DM HTN Generalized debility secondary to acute illness Hx breast Ca Plan IVF stopped - oral drive improving. IV site was lost. Will change to cephalexin 500mg TID for urinary coverage. Encourage diet as able and plenty of fluids. Creatinine improved to 1.5. Would continue to hold lisinopril and metformin due to resolving WILFRIDO. May restart glyburide. Will discharge to home as clinically improved. F/U with Dr Yu in 1 week Recommend rechecking BMP at that time. If renal status and electrolytes stable, could restart lisinopril and metformin. Would encourage rechecking BMP after restarting medication to monitor renal status. See orders for details. Case discussed with patient's daughter. Time spent with patient care and discharge greater than 30 minutes. DVT Prophylaxis: SCD's Resuscitation Status: Full Code Hospital Course Summary Disclaimer: The visit summary below is not to be considered part of the above Progress Note. Hospital Course: 03/04/17 Admission Assessment 1) Acute UTI 2) Acute CKD, likely component of CKD 3) Acute Dehydration 4) Dm type 2 - patient mildly hypoglycemia on admission - on oral meds metformin and sulfonylurea at home 5) HTN 6) h/o Breast Ca Plan Admit to Hospitalist service Continue Rocephin 1 gram IV q 24 hours Continue IVFs of normal saline Check labs later this AM Check A1C this AM Correctional Insulin w/ Glucose checks and Hypoglycemia protocol Hold Metformin and Glipizide Hold Lisinopril and KCL Continue Amlodipine Blood Cx pending/Urine Cx pending Protonix 40mg po daily SCDs 03/05/17 Continue IV Rocephin for urinary coverage - check urine C/S. IV for volume support. NS initiated in ED and by tele-hospitalist. Will change to 1/2NS secondary to hypernatremia. Probiotics secondary to loose stool - will check stool PCR panel secondary to diarrhea. Hold Lisinopril secondary to elevation of creatinine. Monitor lab. Hold Glyburide and metformin secondary to decreased oral drive and metabolic acidosis/elevated creatinine. Monitor blood sugars. Hold KCl secondary to concern for WILFRIDO. Monitor CBC secondary to leukocytosis. Monitor BMP secondary to hypernatremia and IVF use. Discussed code status with patient. Did feel she would not wish revival interventions. Full code ordered with admission. Will discuss code status when patient less acutely ill to make sure she understands. 03/06/17 Continue with Rocephin for urinary coverage. Supportive care with Adenovirus - no specific treatment modalities. Decrease IVF of 1/2NS to 50cc/hr as oral drive increasing. Consult with PT/OT to help improve functional status. Start Remeron 7.5mg nightly to help sleep and stimulate appetite. Creatinine improving (1.6 this am) - BP stable; will continue to hold lisinopril. Blood sugars stable. Will continue to hold Glyburide and metformin for now. Recheck CBC in am due to resolving leukocytosis. Recheck BMP in am due to IVF use and resolving hypernatremia. 03/07/17 IVF stopped - oral drive improving. IV site was lost. Will change to cephalexin 500mg TID for urinary coverage. Encourage diet as able and plenty of fluids. Creatinine improved to 1.5. Would continue to hold lisinopril and metformin due to resolving WILFRIDO. May restart glyburide. Will discharge to home as clinically improved. F/U with Dr Yu in 1 week Recommend rechecking BMP at that time. If renal status and electrolytes stable, could restart lisinopril and metformin. Would encourage rechecking BMP after restarting medication to monitor renal status. See orders for details.
[2017-03-07] MEDS: CEFTRIAXONE 1 G in NS 100 ML IV SCH (13:40)
--- NOTE | 2017-03-07 13:44 | Discharge Summary ---
Discharge Information Date of admission: 03/04/17 23:16 Anticipated date of discharge: 03/07/17 Attending Physician: Joni Coon MD Primary care physician: Dr Yu - Discharge Diagnosis (1) Gastroenteritis and colitis, viral Status: Acute (2) UTI (urinary tract infection), uncomplicated Status: Acute Discharge diagnosis Gastroenteritides (stool positive for Adenovirus) initiating below noted problems Associated conditions and complications UTI - Subclinical growth of E coli Leukocytosis (POA) - resolved Metabolic acidosis (POA) - resolved Hypernatremia (POA) - resolved Elevated serum creatinine - WILFRIDO Stage III CKD Acute dehydration - improving N/V with decreased oral drive Type II DM HTN Generalized debility secondary to acute illness Hx breast Ca - Laboratory Labs: Admit Lab 03/04/17 21:16 WBC 17.3 H Hgb 12.4 Hct 37.8 MCV 96.2 Plt Count 470 H Neutrophils % (Manual) 93.0 H Lymphocytes % (Manual) 6.0 L Monocytes % (Manual) 1.0 Admit Lab 03/04/17 03/04/17 21:16 22:02 Sodium 147 H Potassium 4.0 Chloride 112 H Carbon Dioxide 19 L Anion Gap 16 H BUN 55.0 H* Creatinine 2.8 H GFR Calculation 16 BUN/Creatinine Ratio 20 Glucose 63 L Calculated Osmolality 295 H Calcium 9.6 Total Bilirubin 0.90 AST 13 L ALT 25 Alkaline Phosphatase 121 Total Protein 8.1 Albumin 4.2 Globulin 3.9 H Albumin/Globulin Ratio 1.1 Plasma Lactate 1.9 Laboratory Tests 03/05/17 02:21 Hemoglobin A1c 8.1 H Stool Tests 03/06/17 07:57 Stool Adenovirus (PCR) Detected 03/07/17 04:25 03/07/17 04:25 History of Present Illness HPI: This is an 87 y/o female w/ h/o Type 2 DM, Breast Ca, HTN who presents to ER at [facility] w/ chief concern of feeling weak over the past several days, and having one episode of n/v/d per day for the past 3 days. Overall patient states that she doesn't "feel well". Patient denies cough, abdominal pain, chest pain and shortness of breath. She further denies LYNCH, dysphagia, hematemesis, hematochezia and BRBPR. She has had a poor appetite and minimal oral intake over the past several days. In ER patient noted to have slight tachycardia, WBC of 17.3 K, a BUN of 55 and a Cr of 2.8, and her and her [id number] state that the patient is not aware of having any "kidney problems" in the past. Patient given 500 cc NS bolus x one then started on NS at 150cc/hour. Patient's UA showed WBCs on microscopic and patient given one dose of Rocephin 1gram IV. Lactate = 1.9. Patient admitted to the Hospitalist service for further evaluation and management. Patient states she is feeling better already upon my visiting w/ her, and this is confirmed by patient's family in the room. For complete details of the H&P refer to that document. Objective Vital signs: Temperature 96.9 F 03/07/17 07:27 Pulse Rate 82 03/07/17 07:27 Respiratory Rate 14 03/07/17 07:27 Blood Pressure 145/74 H 03/07/17 07:27 Pulse Oximetry 99 03/07/17 07:27 Height/Weight/BMI: Height 1.47 m Weight 49.1 kg Body Mass Index 22.9 Hospital Course This is a general summary of the patient's hospital course. For more details refer to the complete medical record. Hospital course: 03/04/17 Admission Admit to Hospitalist service Continue Rocephin 1 gram IV q 24 hours Continue IVFs of normal saline Check labs later this AM Check A1C this AM Correctional Insulin w/ Glucose checks and Hypoglycemia protocol Hold Metformin and Glipizide Hold Lisinopril and KCL Continue Amlodipine Blood Cx pending/Urine Cx pending Protonix 40mg po daily SCDs 03/05/17 Continue IV Rocephin for urinary coverage - check urine C/S. IV for volume support. NS initiated in ED and by tele-hospitalist. Will change to 1/2NS secondary to hypernatremia. Probiotics secondary to loose stool - will check stool PCR panel secondary to diarrhea. Hold Lisinopril secondary to elevation of creatinine. Monitor lab. Hold Glyburide and metformin secondary to decreased oral drive and metabolic acidosis/elevated creatinine. Monitor blood sugars. Hold KCl secondary to concern for WILFRIDO. Monitor CBC secondary to leukocytosis. Monitor BMP secondary to hypernatremia and IVF use. Discussed code status with patient. Did feel she would not wish revival interventions. Full code ordered with admission. Will discuss code status when patient less acutely ill to make sure she understands. 03/06/17 Continue with Rocephin for urinary coverage. Supportive care with Adenovirus - no specific treatment modalities. Decrease IVF of 1/2NS to 50cc/hr as oral drive increasing. Consult with PT/OT to help improve functional status. Start Remeron 7.5mg nightly to help sleep and stimulate appetite. Creatinine improving (1.6 this am) - BP stable; will continue to hold lisinopril. Blood sugars stable. Will continue to hold Glyburide and metformin for now. Recheck CBC in am due to resolving leukocytosis. Recheck BMP in am due to IVF use and resolving hypernatremia. 03/07/17 IVF stopped - oral drive improving. IV site was lost. Will change to cephalexin 500mg TID for urinary coverage. Encourage diet as able and plenty of fluids. Creatinine improved to 1.5. Would continue to hold lisinopril and metformin due to resolving WILFRIDO. May restart glyburide. Will discharge to home as clinically improved. F/U with Dr Yu in 1 week Recommend rechecking BMP at that time. If renal status and electrolytes stable, could restart lisinopril and metformin. Would encourage rechecking BMP after restarting medication to monitor renal status. See orders for details. Time spent with patient: discharge greater than 30 minutes DVT Prophylaxis: SCD's Discharge Plan - Discharge Disposition Discharge Date: 03/07/17 Disposition: Discharged Home, Self-Care *Condition: Stable Reason For Visit (Visit label in EMR): UTI,Gen weakness - Discharge Medications *Discharge Medications: New CephALEXin [Keflex] 500 mg PO TID #5 cap Mirtazapine [Remeron] 7.5 mg PO HS #30 tab Acidoph/L.bulg/Bif.b/S.thermop [Bacid Caplet] 2 cap PO TIDWM tab Continue Amlodipine Besylate 10 mg PO DAILY #0 Potassium Chloride [Klor-Con 10] 10 meq PO DAILY #0 Pravastatin [Pravachol] 1 tab PO HS Omeprazole 40 mg PO DAILY Changed glipiZIDE [Glipizide] 10 mg PO ACBID #0 Discontinued Lisinopril 5 mg PO DAILY #0 Metformin HCl [Metformin HCl ER] 1,000 mg PO DAILY - Discharge Packet/Instructions *Diet: 2000 KCAL ADA - plenty of fluids. Sport drink spairingly if stools loose. *Activity: As tolerated *Pain Management/Treatment: Tylenol as needed. Avoid NSAIDS-ibuprofin, naprosyn , etc. *Wound Care: n/a Additional Instructions: May use culturelle to help stools - if too pricey could use Yogurt 1 to 2 times a day. Could use Desitin (zinc oxide, baby diaper rash ointment) to anal area if develope anal itching/buring from loose stool. *Expected Signs/Symptoms: Normalization of stools. Improvement of strength and functional status. *Notify Physician if: Temp greater than 100.4. Uncontrolled diarrhea. Intractable nasuea/vomitting. *During Business Hours Contact: Dr Yu *After Business Hours Contact: Call [facility] and have Dr Yu or her covering provider contacted. *Pending Lab/Results: No Pending Lab - Referrals/Follow Up *Referrals/Follow Up: Andie Yu DO [Physician] - 1 Week (Hospital follow up - enteritis with WILFRIDO. Lisinopril and Metformin placed on hold. Recheck BMP. If restarting Meds, would recommend rechecking BMP in 1 week due to recent WILFRIDO. 03/14/17 AT 1100.) - Patient Handouts Patient Handouts: Urinary Tract Infection in Women (GEN) - Dismissal Complete Discharge Instructions are:: Complete Attestation Narriative - Attestation Attestation Narrative: 03/07/17 13:46 I have independently interviewed and examined patient prior to discharge. See my progress note from today for details. Medically stable for discharge to home.
== END 2017-03-07 14:17 | disposition home or self-care (01) | DRG 392 ==
LOC: ED 20:32 → MED 23:16
PROVIDERS: ADMIT Internal Medicine; ATTEND Hospitalist